=== PATIENT | female | born 2000 | race Caucasian/White ===

== ENCOUNTER 2023-01-13 12:36 | Emergency (ER) | payer BC, SELFPAY ==
--- NOTE | ~2023-01-13 | XR_ITS ---
Left ankle Technique: AP, oblique, and lateral views were obtained. Clinical History: Pain Findings: No acute fracture or dislocation is seen. Osseous alignment is anatomic. Ankle mortise and other visualized joint spaces are preserved. Soft tissues are otherwise unremarkable. Impression: Unremarkable left ankle. Reviewed, dictated and finalized at location . Impression: Unremarkable left ankle.
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
[2023-01-13 12:50] VITALS: BP 128/90; PULSE 77; RESP 16; TEMP 36.9; O2SAT 99
== END 2023-01-13 13:30 | disposition home or self-care (01) ==
PROVIDERS: Emergency Provider Nurse Practitioner
DX: S93.401A Sprain of unspecified ligament of right ankle, initial encounter (principal); S96.911A Strain of unspecified muscle and tendon at ankle and foot level, right foot, initial encounter; X50.9XXA Other and unspecified overexertion or strenuous movements or postures, initial encounter; R01.1 Cardiac murmur, unspecified
CPT/HCPCS: 73610; 99213; G0463

== ENCOUNTER 2023-02-19 09:10 | Emergency (ER) | payer BC, SELFPAY ==
[2023-02-19 09:25] VITALS: BP 118/87; PULSE 75; RESP 16; TEMP 36.2; O2SAT 99
--- NOTE | 2023-02-19 09:30 | ED.EYEPROB ---
HPI - Eye Problem General Chief complaint: Eye Problems Stated complaint: Eyelids swelling Time Seen by Provider: 02/19/23 09:30 Source: patient, RN notes reviewed and old records reviewed Mode of arrival: ambulatory Limitations: no limitations History of Present Illness HPI Narrative: 22 year old female presents to [facility] with complaints of bilateral upper eyelid swelling that she noted around 1800 yesterday for which she took a Benadryl with no improvement. Patient reports that she has not noted any discharge or drainage from her eyes or any visual changes. Patient does wear contacts but removed them and has been wearing her glasses, denies any feeling of foreign body in eyes , denies any trauma to her eyes or any sharp pain to her eyes. patient reports that her eyes feel a little irritated and mild itching no sclera redness or conjunctiva rdness noted. MD chief complaint: other (bilateral eyelid swelling) Onset (ago): day(s) (1) Location: both eyes Eye Symptoms: itching (mild) and other (swelling of upper eyelids) Treatments Prior to Arrival: removed contact lens and other (Benadryl) Related Data Allergies Allergy/AdvReac Type Severity Reaction Status Date / Time No Known Allergies Allergy Verified 01/13/23 12:44 Review of Systems Review of Systems: CONSTITUTIONAL: Denies fever, chills, or sweats. EYES: Denies visual changes. Reports redness and swelling of her upper eyelids, denies any acute pain to her eyes, reports itching, no sclera redness or any conjunctival redness reports minimal itching.Denies any discharge. ENT: Denies rhinorrhea, congestion, sore throat, or otalgia. CARDIOVASCULAR: Denies chest pain, palpitations, or edema. RESPIRATORY: Denies cough or dyspnea. SKIN: Denies rash or itching. NEUROLOGIC: Denies headache PMFSH Past Medical History Medical History (Updated 02/19/23 @ 10:18 by Corry Dove NP) Heart murmur Social History Social History (Updated 02/19/23 @ 10:12 by Corry Dove NP) Smoking status: Never smoker Alcohol intake: current Alcohol use details: social Substance use type: does not use Gender identity (if verbalized by the patient): Female Comments At time of signature, agree with nursing past medical, surgical, social and family history. There is no relevant family history pertinent to the presenting complaint Exam Narrative: GENERAL: Well-appearing, well-nourished, and in no acute distress. HEAD: Normocephalic, atraumatic. EYES: PERRLA and EOMI. Upper eyelids swollen with some mild tenderness voiced, denies any eye drainage or sharp pain to eyes, Sclera and conjunctiva normal, denies any changes in vision, Patient does wear contacts but removed them and has been wearing her glasses, No periorbital cellulitis noted. ENT: Nares clear, no rhinorrhea or epistaxis. Mucous membranes moist. NECK: Supple. no lymphadenopathy CHEST: Clear to auscultation. No respiratory distress.SAO2 99% on room air HEART: Regular rate and rhythm. No murmur heard. Normal peripheral pulses. SKIN: Warm, dry, no rash. NEURO: No focal deficits. Alert and oriented x3. Course Course Emergency Course: Patient is aware of diagnosis, understands and agrees to treatment plan. Anticipatory guidance given. Patient agrees to follow-up as directed and is aware of reasons to seek care at the emergency department. Portions of this record may have been created with voice recognition software Level of Care: Express Care Visit Vital Signs Vital signs: Vital Signs Temperature 36.2 C L 02/19/23 09:25 Pulse Rate 75 02/19/23 09:25 Respiratory Rate 16 02/19/23 09:25 Blood Pressure 118/87 02/19/23 09:25 Pulse Oximetry 99 02/19/23 09:25 Temperature 36.2 C L 02/19/23 09:25 Pulse Rate 75 02/19/23 09:25 Respiratory Rate 16 02/19/23 09:25 Blood Pressure 118/87 02/19/23 09:25 Pulse Oximetry 99 02/19/23 09:25 Reviewed MDM - Eye Problem MDM Narrativ
== END 2023-02-19 09:59 | disposition home or self-care (01) ==
PROVIDERS: Emergency Provider Registered Nurse
DX: H10.13 Acute atopic conjunctivitis, bilateral (principal); R01.1 Cardiac murmur, unspecified
CPT/HCPCS: 99213; G0463